=== PATIENT | male | born 1990 | race Caucasian/White ===

== ENCOUNTER 2021-03-05 10:33 | Outpatient (REF) | payer OTHER, SELFPAY ==
--- NOTE | 2021-03-05 12:33 | MHC.AU.HAS ---
Hearing Aid Evaluation Date of Visit: 03/05/21 Historical Information: Description of Hearing: Normal hearing in the right ear. 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 Current personal amplification information, if applicable: BAHA from 2017. Having removed in the coming days Summary: Mr. Barnes was referred to us by [facility] of [facility] for a hearing aid evaluation. Dr. Nina provided medical clearance for BiCROS hearing aids. Mr. Barnes reports that he was implanted with a BAHA in 2017, but was never satisfied and didn't find much benefit from it. He is having the abutment removed in the coming days. He is interested in trying a CROS hearing aid system. He has never used a standard type hearing aid. Discussed how CROS aids work and advised that he would not hear sound in his left ear. He reported good understanding. Interested in rechargeability and streaming with his iPhone. Hearing Aid Prescription: Based on the individual?s shared listening needs, communication environments, dexterity, desire for connectivity, and personal preferences, the following prescription for amplification has been made: Right ear: Cloth Bolt Bander: Content Fleet Model: [place]udeo P70-R Battery Size: Rechargeable Color: P4 - Tiffin Diesel Dinkey Operator: Size 1 M Type of Dome: Open Left ear: Cloth Bolt Bander: Phonak Model: CROS P-R Battery Size: Rechargeable Color: P4 - Tiffin Diesel Dinkey Operator: Size 1 CROS wire Type of Dome: Open Plan of Care: Hearing aids ordered. Hearing Instrument Fitting to be scheduled when materials arrive Primary Diagnosis: H90.72 Mixed HL, Unilateral, Left Ear, W/Unrestricted Contralateral Signature: Provider: Tigist Jerry, SHANTEL-A
== END 2021-03-05 10:34 | disposition home or self-care (01) ==
LOC: HO.HAP 10:33
PROVIDERS: Visit Provider Otolaryngology
DX: Z46.1 Encounter for fitting and adjustment of hearing aid (principal); H90.72 Mixed conductive and sensorineural hearing loss, unilateral, left ear, with unrestricted hearing on the contralateral side
CPT/HCPCS: 92591

== ENCOUNTER 2021-03-14 14:35 | Outpatient (REF) | payer OTHER, SELFPAY | END 2021-03-14 14:36 | disposition home or self-care (01) | LOC: HO.HAP 14:35 | PROVIDERS: Visit Provider Otolaryngology | DX: Z46.1 Encounter for fitting and adjustment of hearing aid (principal); H90.72 Mixed conductive and sensorineural hearing loss, unilateral, left ear, with unrestricted hearing on the contralateral side | CPT/HCPCS: V5011; V5020; V5221; V5240 ==

== ENCOUNTER 2021-03-28 09:33 | Outpatient (REF) | payer OTHER, SELFPAY | END 2021-03-28 09:34 | disposition home or self-care (01) | LOC: HO.HAP 09:33 | PROVIDERS: Visit Provider Internal Medicine | DX: Z13.89 Encounter for screening for other disorder (principal) ==